=== PATIENT | female | born 1945 | race Caucasian/White ===

== ENCOUNTER 2017-07-08 04:49 | Inpatient (IN) ==
[2017-07-04 14:41] LABS: Basophils # (Auto) 0 K/mcL (0.0-0.3); Basophils % (Auto) 0.3 % (0.0-2.0); Eosinophils # (Auto) 0.2 K/mcL (0.0-0.7); Eosinophils % (Auto) 2.7 % (0.0-7.0); Granulocytes % (Auto) 60.8 % (38.0-78.0); Lymphocytes # (Auto) 2.6 K/mcL (1.5-4.8); Lymphocytes % (Auto) 29.6 % (15.5-49.0); Mean Cell Volume 94.7 fL (80.0-100.0); Mean Corpuscular HGB Conc 33.5 g/dL (31.0-36.0); Mean Corpuscular Hemoglobin 31.7 pg (26.0-34.0); Monocytes # (Auto) 0.6 K/mcL (0.1-0.9); Monocytes % (Auto) 6.6 % (1.0-12.0); Platelet Count 269 K/mcL (140-440); RBC 4.35 M/mcL (4.00-5.20); Red Cell Distribution Width 13.2 % (11.5-14.5)
[2017-07-04 14:55] LABS: Blood Urea Nitrogen 16 mg/dl (8-23)
[2017-07-04 17:49] LABS: Appearance,Urine CLEAR; Bacteria,Urine 0 /hpf (0); Bilirubin,Urine NEG (NEG); Color,Urine STRAW; Glucose,Urine (UA) NEGATIVE (NEG); Leukocyte Esterase,Urine 25 /uL (NEG); Mucus,Urine FEW /hpf (0); Protein,Urine NEG (NEG); Specific Gravity,Urine 1.006 (1.000-1.035); Urine Blood NEG mg/dL (<0.03); Urine RBC 1 /hpf (0-1); Urine Squamous Epithelial Cell < 1 /hpf (0-4); Urine Transitional Epi Cells < 1 /hpf (0-2); Urine WBC < 1 /hpf (0-4); Urobilinogen,Urine NEG (NEG)
[~2017-07-08 04:49] MED LIST: IPRATROPIUM/ALBUTEROL 3 ML AMPUL.NEB NEB PRN; SCOPOLAMINE 1 PATCH PATCH TOPICAL PRN
[2017-07-08] MEDS ORDERED: CELECOXIB 200 MG CAPSULE PO SCH (06:00)
[2017-07-08] MEDS ORDERED: ceFAZolin 1 GM VIAL IV SCH (06:00)
[2017-07-08] MEDS ORDERED: oxyCODONE 10 MG TAB.ER.12H PO SCH (06:00)
[2017-07-08] MEDS ORDERED: PREGABALIN 75 MG CAPSULE PO SCH (06:00)
[2017-07-08] MEDS ORDERED: DEXAMETHASONE 10 MG/ML VIAL ONE (07:32)
[2017-07-08] MEDS ORDERED: MIDAZOLAM 5 MG/5 ML VIAL ONE (07:32)
[2017-07-08] MEDS ORDERED: ONDANSETRON 4 MG/2 ML VIAL ONE (07:32)
[2017-07-08] MEDS ORDERED: KETAMINE 100 MG/ML ML ONE (07:32)
[2017-07-08] MEDS ORDERED: PROPOFOL 200 MG/20 ML VIAL IV ONE (07:32)
[2017-07-08] MEDS ORDERED: GLYCOPYRROLATE 0.2 MG/ML VIAL IV ONE (07:32)
[2017-07-08] MEDS ORDERED: ePHEDrine 50 MG/ML AMPUL IV ONE (07:32)
[2017-07-08] MEDS ORDERED: GENTAMICIN SULFATE 800 MG/20 ML VIAL IR ONE (08:01)
[2017-07-08] MEDS ORDERED: NALOXONE HCL 0.4 MG/ML VIAL IV PRN (09:03)
[2017-07-08] MEDS ORDERED: ONDANSETRON 4 MG/2 ML VIAL IV PRN ×2 (09:03→09:30)
[2017-07-08] MEDS ORDERED: METHOCARBAMOL 1,000 MG/10 ML VIAL IV PRN (09:03)
[2017-07-08] MEDS ORDERED: MEPERIDINE 25 MG/ML SYRINGE IV PRN (09:03)
[2017-07-08] MEDS ORDERED: fentaNYL 100 MCG/2 ML VIAL IV PRN (09:03)
[2017-07-08] MEDS ORDERED: IPRATROPIUM/ALBUTEROL 3 ML AMPUL.NEB NEB PRN (09:03)
[2017-07-08] MEDS ORDERED: LACTATED RINGERS 250 ML IV PRN (09:03)
[2017-07-08] MEDS ORDERED: FLUMAZENIL 0.1 MG/ML ML IV PRN (09:03)
[2017-07-08] MEDS ORDERED: ACETAMINOPHEN 1,000 MG/100 ML BOTTLE IV ONE (09:03)
[2017-07-08] MEDS ORDERED: BENZOCAINE/MENTHOL 1 LOZENGE PO PRN ×2 (09:03→09:30)
[2017-07-08] MEDS ORDERED: LACTATED RINGERS 1,000 ML IV SCH (09:15)
[2017-07-08] MEDS ORDERED: BISACODYL 10 MG SUPP.RECT PR PRN (09:30)
[2017-07-08] MEDS ORDERED: ACETAMINOPHEN 325 MG TABLET PO PRN (09:30)
[2017-07-08] MEDS ORDERED: KETOROLAC 30 MG/ML VIAL IV PRN (09:30)
[2017-07-08] MEDS ORDERED: FLEETS ADULT ENEMA PR PRN (09:30)
[2017-07-08] MEDS ORDERED: POLYETHYLENE GLYCOL 3350 17 GM PACKET PO PRN (09:30)
[2017-07-08] MEDS ORDERED: MAGNESIUM HYDROXIDE 30 ML ORAL.SUSP PO PRN (09:30)
[2017-07-08] MEDS ORDERED: ONDANSETRON ODT 4 MG TABLET SL PRN (09:30)
[2017-07-08] MEDS ORDERED: TRANEXAMIC ACID 1,000 MG/10 ML VIAL IV ONE (09:30)
[2017-07-08] MEDS ORDERED: METHOCARBAMOL 750 MG TABLET PO PRN (09:30)
--- NOTE | 2017-07-08 09:30 | Brief Operative Note ---
Date of procedure: 07/08/17 Pre-op diagnosis: left hip osteoarthritis Post-op diagnosis: same Procedure: left total hip arthroplasty Grafts/Implants: Yes Anesthesia: spinal Complications: none Surgeon: Javier Yañez Assembler Cards And Announcements: Molly Downing Estimated blood loss (cc): 150 Specimens Removed/Pathology: none sent Condition: stable Disposition: PACU
--- NOTE | 2017-07-08 09:38 | Operative Note ---
DATE OF OPERATION: 07/08/2017 PREOPERATIVE DIAGNOSIS: Degenerative joint disease, left hip. POSTOPERATIVE DIAGNOSIS: Degenerative joint disease, left hip. PROCEDURE: Left total hip arthroplasty. SURGEON: Carolina Yañez M.D. MIX MAKER SURGEON: Molly Downing PA-C ANESTHESIA: Spinal with LMA assist. ESTIMATED BLOOD LOSS: 115 mL COMPLICATIONS: None noted. SPECIMENS REMOVED: None. DRAINS: None. IMPLANTS: DePuy Cochise Gription acetabular shell 54 mm, DePuy Cochise AltrX polyethylene acetabular liner, neutral 36 x 54, DePuy Actis femoral stem DuoFix cementless size 6 standard collar, DePuy Biolox Delta ceramic femoral head +5 36 mm diameter. INDICATIONS: The patient has had a longstanding history of worsening pain in the hip that has failed conservative treatment. Radiographs have confirmed advanced degenerative joint disease. After a long discussion about treatment options, the patient elected to proceed with a hip arthroplasty. The risks and benefits were discussed with the patient in detail including, but not limited to, the risks of anesthesia, problems with the heart or lungs related to anesthesia, infection, compromise or injury to the nerves and blood vessels, deep venous thrombosis, pulmonary embolism, pneumonia, continued pain after surgery, worsening pain or symptoms after surgery, swelling, loss of motion, instability, leg length discrepancy, and need for repeat surgery. DESCRIPTION OF PROCEDURE: The patient was seen in pre-anesthesia waiting room where all questions were answered and the correct side and site were identified and marked. The patient was then brought to the operating room and administered the anesthetic and given pre-operative antibiotics. A time-out was then called. The patient was placed in the lateral decubitus position with all prominences well-padded using the Hayden frame and the extremity was prepped and draped in the usual sterile fashion. Anesthesia gave the patient 1 gm of tranexamic acid via an intravenous route. A standard posterior approach was made. We dissected through the skin and subcutaneous tissue to the deep fascia. The deep fascia was split in line with the incision and a Charnley retractor was placed. We exposed, tagged, and incised the short external rotators and piriformis tendon and retracted them posteriorly to help protect the sciatic nerve which was palpated throughout the case. We then performed a T-capsulotomy and tagged the capsule edges. Prior to dislocating the hip, we set a length and offset gauge from a Steinmann pin in the iliac wing to a morgan on the greater trochanter. The hip was then dislocated and a femoral neck osteotomy was performed to the pre-surgical templated level off the lesser trochanter. The head was removed and sized. We next turned our attention to the acetabulum. Retractors were placed for optimal visualization. A complete labral excision was performed. The capsule was preserved for later closure. We began reaming using anatomic landmarks with the DePuy Cochise acetabular system. We medialized the cup and reamed up to provide good fill and coverage of the trial. When the trial was stable and appropriately positioned with approximately 20 degrees of anteversion and 45 degrees of abduction, we impacted the DePuy Cochise cup and placed a cancellous screw in the posterior-superior quadrant. Osteophytes were removed from around the shell. We placed the trial liner and turned our attention to the femur. We placed retractors for visualization, internally rotated the femur, and established intramedullary access. We broached using the DePuy Actis stem to a stable platform medial, lateral, and rotationally with the appropriate version. We then performed a calcar reaming off the broach. Trials were then placed and optimized for leg length and stability. We used the leg length and offset guide to confirm our trials. Best stability, length, and offset characteristics were obtained with these sizes. We removed all trials and impacted the polyethylene acetabular liner in a standard fashion after a thorough irrigation. We then impacted the femoral stem to its broached location and placed the head. Final reduction was performed. Again, good stability, leg length, and offset characteristics were noted. We irrigated with three liters of antibiotic saline. We closed the capsule with #2 FiberWire. We placed a deep drain and closed the fascia with a combination of looped #0 Maxon and #0 Vicryl. We closed the subcutaneous tissue and skin in layers out to manjit in the skin. A sterile pressure dressing and abduction wedge was applied. All needle and sponge counts were correct. The patient was transferred to the recovery room in stable condition. ACE:shanti Job ID: [id number] Doc ID: [id number] Carolina Yañez MD
--- NOTE | 2017-07-08 10:26 | XRay Report ---
CLINICAL INFORMATION: Postop total hip prostheses COMPARISON: Preoperative pelvic films 02/21/2015 FINDINGS: Left total hip prostheses is anatomically aligned. No osseous abnormality. Older right total hip prostheses remains anatomically aligned without loosening or infection. Soft tissues swelling over the surgical site seen - as expected IMPRESSION: Negative Interpreted and Authenticated by: Javier Garcia 07/08/17
[2017-07-08] MEDS: 0.9 % SODIUM CHLORIDE 1,000 ML IV SCH ×2 (10:47→18:00)
[2017-07-08] MEDS: HYDROcodone/APAP 10/325MG TABLET PO PRN ×3 (13:15→23:04)
[2017-07-08] MEDS: 0.9 % SODIUM CHLORIDE 10 ML SYRINGE IV SCH ×2 (13:50→21:54)
[2017-07-08] MEDS: ceFAZolin 1 GM VIAL IV SCH ×2 (15:39→23:03)
[2017-07-08] MEDS: DOCUSATE SODIUM 100 MG CAPSULE PO SCH (19:40)
[2017-07-08] MEDS: ASPIRIN 325 MG ENTERIC COATED TABLET PO SCH (19:40)
[2017-07-08] MEDS ORDERED: SENNOSIDES 1 TABLET PO SCH (21:00)
[2017-07-08] MEDS ORDERED: SIMVASTATIN 10 MG TABLET PO SCH (21:00)
[2017-07-09] MEDS: 0.9 % SODIUM CHLORIDE 1,000 ML IV SCH ×2 (01:30→09:57)
[2017-07-09] MEDS: 0.9 % SODIUM CHLORIDE 10 ML SYRINGE IV SCH (06:10)
[2017-07-09] MEDS: HYDROcodone/APAP 10/325MG TABLET PO PRN ×2 (07:07→10:58)
--- NOTE | 2017-07-09 07:35 | Orthopedic Progress Note ---
Subjective Patient information: Note initiated : 07/09/17 at 7:34 am Service Date, if different from initiated Date: [] Patient: Myra Nielsen 72 y/o F admitted on 07/08/17 for Left Total Hip Arthroplasty. Chief Complaint: [] Interval history: doing well, pain under control Objective Vital signs: Vital Signs Temp Pulse Resp BP Pulse Ox 07/09/17 06:41 98.1 F 16 117/70 91 07/09/17 04:00 97.6 F 63 16 125/76 92 07/09/17 00:00 97.0 F 69 16 113/67 91 07/08/17 21:53 91 07/08/17 20:00 97.5 F 62 16 123/63 94 07/08/17 13:40 65 128/74 93 07/08/17 12:40 71 119/72 92 07/08/17 12:10 69 130/75 90 07/08/17 11:40 70 125/76 91 07/08/17 11:25 68 116/67 90 07/08/17 11:12 68 129/71 94 07/08/17 10:55 63 132/66 96 07/08/17 10:40 72 109/70 07/08/17 10:31 97.5 F 70 15 114/57 98 07/08/17 10:19 67 13 115/69 98 07/08/17 10:05 67 14 111/72 100 07/08/17 09:50 97.2 F 60 10 L 114/52 97 Intake and Output 07/08/17 07/09/17 07/09/17 21:59 05:59 13:59 Intake Total 1365 / 1365 1800 / 1800 450 / 450 Output Total 1000 / 1000 800 / 800 600 / 600 Balance 365 / 365 1000 / 1000 -150 / -150 Intake: IV 1000 / 1000 Sodium Chloride 0.9% 1,000 ml @ 1000 / 1000 125 mls/hr IV .Q8H [facility] Rx#: [id number] Oral 1365 / 1365 800 / 800 450 / 450 Output: Urine Catheter Amount 600 / 600 Straight 600 / 600 Void Amount 400 / 400 800 / 800 600 / 600 Other: Meal Dinner Percent of Meal Consumed 75% # Voids 1 Weight 271 lb Intake & Output: Intake & Output 07/08/17 07/09/17 07/09/17 21:59 05:59 13:59 Intake Total 1365 / 1365 1800 / 1800 450 / 450 Output Total 1000 / 1000 800 / 800 600 / 600 Balance 365 / 365 1000 / 1000 -150 / -150 Weight 271 lb Intake: IV 1000 / 1000 Sodium Chloride 0.9% 1,000 ml @ 1000 / 1000 125 mls/hr IV .Q8H [facility] Rx#: [id number] Oral 1365 / 1365 800 / 800 450 / 450 Output: Urine Catheter Amount 600 / 600 Straight 600 / 600 Void Amount 400 / 400 800 / 800 600 / 600 Other: Meal Dinner Percent of Meal Consumed 75% # Voids 1 Incision: Yes healing Incision clean and dry: Yes Dressing: Yes clean, Yes dry, Yes intact Weight bearing status: full Neurological exam IM: No abnormal gait, Yes alert, Yes oriented X3, Yes neurovascular intact Extremities exam IM: No calf tenderness, Yes Foot pink and warm - Labs CBC & BMP: 07/09/17 04:10 07/04/17 12:12 Labs: Orthopedic Labs 07/04/17 12:12 PT 12.6 INR 0.9 07/09/17 07/04/17 04:10 12:12 Hgb 11.6 L 13.8 Hct 34.6 L 41.2 Assessment and Plan (1) H/O total hip arthroplasty pod 1 s/p kranthi wbat pain control dvt prophylaxis d/c planning Status: Acute
--- NOTE | 2017-07-09 07:36 | Discharge Summary ---
Ortho Discharge - [facility] - Patient Instructions Diet: Regular Diet Activity: activity as tolerated, weight bearing as tolerated Total Hip Protocol: Follow activity instructions as provided by Physical Therapy. Dressing Care: May shower in 2 days - Problem Maintenance (1) H/O total hip arthroplasty Status: Acute - Follow Up Plan Disposition: Home, Self-Care Prognosis: Good Rehab Potential: Good I certify that the patient requires SNF services: No Overall status at discharge: patient is progressing back to baseline
[2017-07-09] MEDS ORDERED: MAGNESIUM OXIDE 400 MG TABLET PO SCH (09:00)
[2017-07-09] MEDS ORDERED: amLODIPine 10 MG TABLET PO SCH (09:00)
[2017-07-09] MEDS ORDERED: LOSARTAN/HCTZ 100/25 TABLET PO SCH (09:00)
[2017-07-09] MEDS ORDERED: HYDROCHLOROTHIAZIDE 25 MG TABLET PO SCH (09:00)
[2017-07-09] MEDS ORDERED: LOSARTAN 50 MG TABLET PO SCH (09:00)
[2017-07-09] MEDS: DOCUSATE SODIUM 100 MG CAPSULE PO SCH (09:59)
[2017-07-09] MEDS: ASPIRIN 325 MG ENTERIC COATED TABLET PO SCH (09:59)
== END 2017-07-09 13:20 | disposition home or self-care (01) | DRG 470 ==
LOC: MEDSUR 04:49
PROVIDERS: ADMIT Orthopaedic Surgery Sports Medicine; ATTEND Orthopaedic Surgery Sports Medicine

== ENCOUNTER 2024-04-10 10:16 | Observation (INO) ==
[2024-04-10] MEDS ORDERED: IOPAMIDOL 100 ML BOTTLE IV ONE ×2 (10:17)
[2024-04-10] MEDS: ONDANSETRON 4 MG/2 ML VIAL IV ONE (10:41)
[2024-04-10 11:03] LABS: Basophils # (Auto) 0.01 K/mcL (0.00-0.30); Basophils % (Auto) 0.1 % (0.0-2.0); Eosinophils # (Auto) 0.02 K/mcL (0.00-0.70); Eosinophils % (Auto) 0.1 % (0.0-7.0); Hematocrit 43.6 % (34.1-44.9); Hemoglobin 13.7 g/dL (11.2-15.7); Lymphocytes # (Auto) 1.47 K/mcL (1.50-4.80); Mean Cell Volume 98.2 fL (80.0-100.0); Mean Corpuscular HGB Conc 31.4 g/dL (31.0-36.0); Mean Platelet Volume 9.3 fL (8.8-12.5); Monocytes # (Auto) 1.14 K/mcL (0.10-0.90); Monocytes % (Auto) 7.8 % (1.0-12.0); Neutrophils % (Auto) 81.8 % (38.0-78.0); Platelet Count 382 K/mcL (140-440); RBC 4.44 M/mcL (3.59-5.38); WBC 14.7 K/mcL (4.5-11.0)
[2024-04-10 11:41] LABS: ALT/SGPT 23 U/L (<40); AST/SGOT 33 U/L (<32); Albumin 3.6 gm/dL (3.2-5.2); Albumin/Globulin Ratio 0.9 (1.0-2.3); Alkaline Phosphatase 225 U/L (39-117); Anion Gap 17.1 (8.0-16.0); Bilirubin,Total 0.4 mg/dL (0.1-1.0); Blood Urea Nitrogen 13 mg/dL (8-23); Calcium 9.6 mg/dL (8.6-10.4); Carbon Dioxide 25 mmol/L (22-30); Chloride 95 mmol/L (96-108); Globulin 3.9 gm/dL (2.2-3.7); Glomerular Filtration Rate 82; Glucose 133 mg/dL (70-105); Potassium 3.9 mmol/L (3.3-5.1); Sodium 137 mmol/L (133-145)
[2024-04-10 12:46] LABS: Appearance,Urine Clear (Clear); Bacteria,Urine Mod /hpf (0); Bilirubin,Urine Negative (Negative); Color,Urine Yellow; Glucose,Urine (UA) Negative (Negative); Ketones,Urine Negative (Negative); Leukocyte Esterase,Urine Small /uL (Negative); Nitrate,Urine Negative (Negative); PH,Urine 7.5 (5.0-9.0); Protein,Urine Trace mg/dL (Negative); Specific Gravity,Urine 1.015 (1.000-1.035); Urine Blood Negative ery/mcL (Negative); Urine RBC 0 /hpf (0-3); Urine Squamous Epithelial Cell 3 /hpf (0-4); Urine WBC 0 /hpf (0-4); Urobilinogen,Urine Normal
[2024-04-10] MEDS: PIPERACILLIN SODIUM/TAZOBACTAM 3.375 GM in DEXTROSE 5% IN WATER 50 ML IV ONE ×2 (15:21→15:48)
[2024-04-10] MEDS: morphine 4 MG/ML VIAL IV ONE (15:22)
[2024-04-10] MEDS ORDERED: GADOBENATE DIMEGLUMINE 20 ML/VIAL IV ONE (19:18)
[2024-04-10] MEDS ORDERED: METOPROLOL TARTRATE 5 MG/5 ML VIAL IV PRN (19:23)
[2024-04-10] MEDS ORDERED: LABETALOL HCL 20 MG/4 ML VIAL IV PRN (19:23)
[2024-04-10] MEDS: PIPERACILLIN SODIUM/TAZOBACTAM 4.5 GM in DEXTROSE 5% IN WATER 100 ML IV SCH ×2 (19:50→22:18)
[2024-04-10] MEDS: HYDROcodone/APAP 5/325MG TABLET PO PRN (19:55)
[2024-04-10] MEDS: DEXTROSE 5%-LR 1,000 ML IV SCH (19:56)
[2024-04-10] MEDS: HYDROmorphone 0.5 MG/0.5 ML SYRINGE IV PRN (22:17)
[2024-04-10] MEDS: HEPARIN 5,000 UNIT/ML VIAL SQ SCH (22:17)
[2024-04-11] MEDS: ENALAPRILAT 1.25 MG/ML VIAL IV PRN (04:47)
[2024-04-11 06:07] LABS: Hematocrit 39.6 % (34.1-44.9); Hemoglobin 12.4 g/dL (11.2-15.7); Mean Corpuscular HGB Conc 31.3 g/dL (31.0-36.0); Mean Platelet Volume 9.3 fL (8.8-12.5); Platelet Count 307 K/mcL (140-440); RBC 3.96 M/mcL (3.59-5.38); Red Cell Distribution Width 12.2 % (11.5-14.5); WBC 10.6 K/mcL (4.5-11.0)
[2024-04-11 06:15] LABS: ALT/SGPT 29 U/L (<40); AST/SGOT 38 U/L (<32); Albumin/Globulin Ratio 0.9 (1.0-2.3); Alkaline Phosphatase 306 U/L (39-117); Bilirubin,Total 0.5 mg/dL (0.1-1.0); Blood Urea Nitrogen 11 mg/dL (8-23); Calcium 8.8 mg/dL (8.6-10.4); Carbon Dioxide 30 mmol/L (22-30); Chloride 95 mmol/L (96-108); Globulin 3.5 gm/dL (2.2-3.7); Glomerular Filtration Rate 82; Glucose 118 mg/dL (70-105); Potassium 3.8 mmol/L (3.3-5.1); Sodium 135 mmol/L (133-145)
[2024-04-11] MEDS: LOSARTAN 50 MG TABLET PO SCH (10:00)
[2024-04-11] MEDS: DULoxetine 20 MG CAPSULE PO SCH (10:00)
[2024-04-11] MEDS: ONDANSETRON 4 MG ODT TABLET SL PRN (11:05)
[2024-04-11] MEDS: ATORVASTATIN 10 MG TABLET PO SCH (20:32)
[2024-04-11] MEDS ORDERED: traZODone HCL 50 MG TABLET PO SCH (21:00)
[2024-04-12 06:02] LABS: ALT/SGPT 26 U/L (<40); AST/SGOT 27 U/L (<32); Alkaline Phosphatase 270 U/L (39-117); Bilirubin,Direct 0.2 mg/dL (<0.3); Bilirubin,Total 0.4 mg/dL (0.1-1.0); Blood Urea Nitrogen 9 mg/dL (8-23); Calcium 8.6 mg/dL (8.6-10.4); Carbon Dioxide 33 mmol/L (22-30); Chloride 94 mmol/L (96-108); Globulin 2.9 gm/dL (2.2-3.7); Glomerular Filtration Rate 82; Glucose 111 mg/dL (70-105); Lactate Dehydrogenase 194 U/L (135-225); Potassium 3.9 mmol/L (3.3-5.1); Sodium 135 mmol/L (133-145); Triglycerides 92 mg/dL (<150); Uric Acid 3.5 mg/dL (2.5-8.0)
[2024-04-12 11:34] VITALS: TEMP 98.4
[2024-04-12 16:23] VITALS: O2SAT 96
== END 2024-04-12 15:55 | disposition home or self-care (01) ==
LOC: ED 10:16 → MEDSUR 10:16
PROVIDERS: ADMIT Surgery Surgical Critical Care; ATTEND Surgery Surgical Critical Care